=== PATIENT | female | born 1995 | race Caucasian/White ===

== ENCOUNTER 2017-01-31 00:25 | Observation (INO) | payer SELFPAY ==
[~2017-01-31] VITALS: Ht 157.5 cm; Wt 71.7 kg
[2017-01-31 01:30] VITALS: BP 116/74
[2017-01-31 02:06] LABS: APPEARANCE,URINE CLEAR (CLEAR); GLUCOSE, URINE (UA) NEGATIVE (NEGATIVE); KETONES,URINE NEGATIVE (NEGATIVE); LEUKOCYTE ESTERASE ,URINE NEGATIVE (NEGATIVE); OCCULT BLOOD,URINE NEGATIVE (NEGATIVE); PROTEIN,URINE NEGATIVE (NEGATIVE)
[2017-01-31 02:13] LABS: ADD UA MICROSCOPIC NO
== END 2017-01-31 03:30 | disposition home or self-care (01) ==
LOC: 4S 00:25
PROVIDERS: ADMIT Obstetrics & Gynecology; ATTEND Obstetrics & Gynecology
DX: O26.892 Other specified pregnancy related conditions, second trimester (principal); R10.2 Pelvic and perineal pain; R07.81 Pleurodynia; Z3A.20 20 weeks gestation of pregnancy
CPT/HCPCS: 59025; 76815; 80307 ×8; 81003; G0378